=== PATIENT | female | born 1995 | race Two or more races ===

== ENCOUNTER → 2024-09-22 | Outpatient (CLI) | payer MEDICAID, SELFPAY ==
--- NOTE | 2024-09-22 16:33 | XR_ITS ---
Examination: Wrist, right 3 views Technique: Wrist AP, oblique, lateral 3 views Date and time of exam: September 22, 2024 1442 hours INDICATIONS: Hand wrist trauma one year ago. FINDINGS: Significant osteopenia No fracture or dislocation No cortical bone destruction No opaque foreign body IMPRESSION: No fracture
--- NOTE | 2024-09-22 16:33 | XR_ITS ---
Examination: Hand, right 3 views Technique: Hand AP, oblique, lateral 3 views Date and time of exam: September 22, 2024 1642 hours INDICATIONS: History finger fractures one year ago. FINDINGS: Severe osteopenia Healed fracture proximal phalanx fourth digit Partially healed fracture proximal phalanx fifth digit Satisfactory alignment No opaque foreign bodies No cortical bone destruction IMPRESSION: Healed fracture proximal phalanx fourth digit with satisfactory alignment Partially healed fracture proximal phalanx fifth digit with satisfactory alignment
== END | disposition home or self-care (01) ==
PROVIDERS: PCP Physician Assistant
DX: M79.641 Pain in right hand (principal); M25.531 Pain in right wrist; Z87.81 Personal history of (healed) traumatic fracture
CPT/HCPCS: 73110; 73130